=== PATIENT | female | born 1990 | race Hispanic/Latino ===

== ENCOUNTER 2017-08-12 06:04 | Emergency (ER) | payer OTHER, SELFPAY ==
[2017-08-12 06:21] LABS: Bilirubin Negative (Negative); Blood, Urine Negative (Negative); Clarity CLOUDY (Clear); Glucose, Urine (Dipstick) Negative (Negative); Leukocyte Large (Negative); Nitrite Negative (Negative); Protein, Urine (Dipstick) Negative (Neg-Trace); pH, Urine 5.5 (5.0-9.0)
[2017-08-12 06:23] LABS: Bacteria/HPF 1+ HPF (None Seen); Hyaline Casts/LPF 0-3 HYALINE CAST LPF (0-3 Hyaline)
[2017-08-12] MEDS ORDERED: Mag-Al 1200 mg/1200 mg/30 ML UDCUP ONE (06:26)
[2017-08-12] MEDS ORDERED: Lidocaine Viscous Sol 2% 15 ml UD Cup ONE (06:26)
[2017-08-12 06:30] LABS: #Lymphocytes 2.4 thou/uL (1.20-3.40); #Monocytes 0.6 thou/uL (0.11-0.59); #Neutrophils 7.1 thou/uL (1.40-6.50); %Basophils 0.4 % (0.0-1.0); %Eosinophils 0.4 % (0.0-10.0); %Lymphocytes 23.4 % (21.0-51.0); %Monocytes 5.7 % (0.0-10.0); Hemoglobin 13.8 g/dL (12.0-16.0); Mean Corpuscular HGB CONC 36.1 g/dL (32.0-36.0); Mean Corpuscular Hemoglobin 32.8 pg (27.0-31.0); Mean Corpuscular Volume 90.9 fL (78.0-98.0); Mean Platelet Volume 9.8 fL (7.4-10.4); Platelet Count 156 thou/uL (130-400); RBC Distribution Width 11.8 % (11.5-14.5); Red Blood Cell (RBC) Count 4.22 mill/uL (4.20-5.40); White Blood Cell (WBC) Count 10.1 thou/uL (4.8-10.8)
[2017-08-12 06:48] LABS: ALT (SGPT) 18 U/L (8-55); AST (SGOT) 15 U/L (5-34); Albumin 4.1 g/dL (3.5-5.0); Alkaline Phosphatase 69 U/L (40-150); Anion Gap 13 mmol/L (10-20); BUN (Urea Nitrogen) 9 mg/dL (7.0-18.7); Bilirubin, Total 0.9 mg/dL (0.2-1.2); Calc. Creatinine Clearance 0 mL/min (70-130); Calcium 9.4 mg/dL (7.8-10.44); Carbon Dioxide 20 mmol/L (22-29); Chloride 106 mmol/L (98-107); Estimated GFR-MDRD Greater than 90; Globulin 3.1 g/dL (2.4-3.5); Glucose 123 mg/dL (70-105); Lipase 23 U/L (8-78); Potassium 3.6 mmol/L (3.5-5.1); Protein, Total 7.2 g/dL (6.0-8.3); Sodium 135 mmol/L (136-145)
--- NOTE | 2017-08-12 08:53 | ULT ---
SONOGRAM RIGHT UPPER QUADRANT: Date: 08/12/17 HISTORY: Right upper quadrant pain. FINDINGS: Multiple shadowing stones are apparent within the gallbladder lumen. No pericholecystic fluid or gall bladder wall thickening. Common bile duct is 0.4 cm. Liver unremarkable without focal mass or intrahe patic biliary dilatation. No free fluid. IMPRESSION: Cholelithiasis. No evidence of acute biliary obstruction. POS: TPC
== END 2017-08-12 08:38 | disposition home or self-care (01) ==
LOC: ERS 06:04
DX: O99.611 Diseases of the digestive system complicating pregnancy, first trimester (principal); K80.20 Calculus of gallbladder without cholecystitis without obstruction; Z3A.08 8 weeks gestation of pregnancy
CPT/HCPCS: 36415; 76705; 80053; 81003; 81015; 83690; 84702; 85025

== ENCOUNTER 2018-06-22 18:11 | Inpatient (IN) | payer MEDICAID, OTHER ==
[2018-06-22] MEDS ORDERED: Ketorolac Tromethamine 30 MG/ML VIAL ONE (18:47)
[2018-06-22] MEDS ORDERED: Ondansetron PF 4 MG/2 ML Vial ONE (18:47)
[2018-06-22 18:52] LABS: Bilirubin Large (Negative); Blood, Urine Negative (Negative); Clarity Cloudy (Clear); Glucose, Urine (Dipstick) 100 mg/dL (Negative); Leukocyte Trace (Negative); Nitrite Negative (Negative); Protein, Urine (Dipstick) 30 mg/dL (Neg-Trace); Specific Gravity, Urine 1.025 (1.005-1.030); pH, Urine 5.5 (5.0-9.0)
[2018-06-22 18:54] LABS: Pregnancy Test - Urine (BHCG) Negative (Negative); Pregu Control Background? CLEAR/WHITE (CLR/WHITE); Pregu Control Bar Appear? YES (CONTROL BAR); Specific Gravity 1.025 (1.002-1.036)
[2018-06-22 18:55] LABS: RBC/HPF 0-3 HPF (0-3)
[2018-06-22 18:56] LABS: Bacteria/HPF 2+ HPF (None Seen); Crystals/HPF 2+ CA OXALATE HPF (Negative); Hyaline Casts/LPF 0-3 HYALINE CAST LPF (0-3 Hyaline)
[2018-06-22 19:29] LABS: ALT (SGPT) 478 U/L (8-55); AST (SGOT) 114 U/L (5-34); Albumin 4.6 g/dL (3.5-5.0); Alkaline Phosphatase 247 U/L (40-150); Anion Gap 18 mmol/L (10-20); BUN (Urea Nitrogen) 9 mg/dL (7.0-18.7); Bilirubin, Total 6.2 mg/dL (0.2-1.2); Calc. Creatinine Clearance 0 mL/min (70-130); Calcium 10.7 mg/dL (7.8-10.44); Carbon Dioxide 23 mmol/L (22-29); Chloride 102 mmol/L (98-107); Estimated GFR-MDRD 83; Glucose 127 mg/dL (70-105); Lipase 34 U/L (8-78); Potassium 3.8 mmol/L (3.5-5.1); Protein, Total 8.6 g/dL (6.0-8.3); Sodium 139 mmol/L (136-145)
[2018-06-22 19:30] LABS: #Lymphocytes 1.1 thou/uL (1.20-3.40); #Monocytes 0.3 thou/uL (0.11-0.59); #Neutrophils 7.7 thou/uL (1.40-6.50); %Basophils 0.5 % (0.0-1.0); %Eosinophils 0.2 % (0.0-10.0); %Lymphocytes 12.1 % (21.0-51.0); %Monocytes 3.1 % (0.0-10.0); %Neutrophils 84.1 % (42.0-75.0); Hemoglobin 14.8 g/dL (12.0-16.0); Mean Corpuscular HGB CONC 34.4 g/dL (32.0-36.0); Mean Corpuscular Hemoglobin 29.6 pg (27.0-31.0); Mean Corpuscular Volume 86.1 fL (78.0-98.0); Mean Platelet Volume 12.1 fL (7.4-10.4); Platelet Count 222 thou/uL (130-400); Platelet Morphology Comment Appears Adequate; RBC Distribution Width 13.9 % (11.5-14.5); Red Blood Cell (RBC) Count 4.99 mill/uL (4.20-5.40); White Blood Cell (WBC) Count 9.2 thou/uL (4.8-10.8)
--- NOTE | 2018-06-22 20:41 | ULT ---
ULTRASOUND ABDOMEN LIMITED: (RIGHT UPPER QUADRANT) DATE: 06/22/2018 HISTORY: 28-year-old female with epigastric and right upper quadrant abdominal pain FINDINGS: Gallbladder:Normal mural thickness. Multiple mobile gallstones. No pericholecystic fluid. Positive te nderness. Common duct: 8 mm. Liver:Normal size and echogenicity. Pancreas:Tail obscured by shadowing from bowel gas. Right kidney:No hydronephrosis. IMPRESSION: 1) dilated common duct suspicious for obstruction due to occult choledocholithiasis. 2.) Cholelithiasis.
[2018-06-22] MEDS ORDERED: Morphine 4 MG/ML VIAL ONE (20:57)
[2018-06-22] MEDS ORDERED: Piperacillin/Tazobactam 3.375 GM VIAL ONE (21:03)
[2018-06-22] MEDS ORDERED: Sodium Chloride 0.9% 100 ML ONE (21:03)
[2018-06-22] MEDS ORDERED: Morphine 4 MG/ML VIAL SLOW IVP PRN (22:31)
[2018-06-22] MEDS ORDERED: Ondansetron PF 4 MG/2 ML Vial IVP PRN (22:33)
[2018-06-22 22:45] VITALS: BMI 36.6
[2018-06-23] MEDS: Dextrose 5 %-0.45 % NaCl 1,000 ML IV SCH ×2 (01:57→09:29)
[2018-06-23] MEDS ORDERED: Piperacillin/Tazobactam 3.375 GM in Sodium Chloride 0.9% 100 ML IVPB SCH (03:00)
[2018-06-23 06:48] LABS: #Eosinphils 0.1 thou/uL (0.0-0.7); #Lymphocytes 1.5 thou/uL (1.20-3.40); #Monocytes 0.5 thou/uL (0.11-0.59); %Basophils 0.3 % (0.0-1.0); %Eosinophils 0.8 % (0.0-10.0); %Lymphocytes 20.5 % (21.0-51.0); %Monocytes 7.6 % (0.0-10.0); %Neutrophils 70.8 % (42.0-75.0); Hemoglobin 12.2 g/dL (12.0-16.0); Mean Corpuscular HGB CONC 33.7 g/dL (32.0-36.0); Mean Corpuscular Volume 89.2 fL (78.0-98.0); Platelet Count 183 thou/uL (130-400); Red Blood Cell (RBC) Count 4.08 mill/uL (4.20-5.40); White Blood Cell (WBC) Count 7.1 thou/uL (4.8-10.8)
[2018-06-23 07:08] LABS: ALT (SGPT) 308 U/L (8-55); AST (SGOT) 74 U/L (5-34); Albumin 3.5 g/dL (3.5-5.0); Alkaline Phosphatase 193 U/L (40-150); Anion Gap 12 mmol/L (10-20); BUN (Urea Nitrogen) 9 mg/dL (7.0-18.7); Bilirubin, Total 4.4 mg/dL (0.2-1.2); Calc. Creatinine Clearance 163 mL/min (70-130); Calcium 8.8 mg/dL (7.8-10.44); Carbon Dioxide 23 mmol/L (22-29); Chloride 107 mmol/L (98-107); Estimated GFR-MDRD Greater than 90; Glucose 124 mg/dL (70-105); Lipase 39 U/L (8-78); Potassium 3.6 mmol/L (3.5-5.1); Protein, Total 6.5 g/dL (6.0-8.3); Sodium 138 mmol/L (136-145)
[2018-06-23] MEDS ORDERED: Acetaminophen 1,000 MG in Premix Bag 1 BAG IVPB PRN (09:22)
[2018-06-23] MEDS ORDERED: Morphine 4 MG/ML VIAL SLOW IVP PRN (10:56)
[2018-06-23] MEDS ORDERED: Morphine 2 MG/ML SYRINGE SLOW IVP PRN (10:56)
[2018-06-23] MEDS ORDERED: Ondansetron ODT 4 MG TAB PO PRN (11:37)
[2018-06-23] MEDS: Piperacillin/Tazobactam 3.375 GM in Sodium Chloride 0.9% 100 ML IVPB SCH ×2 (12:39→20:03)
--- NOTE | 2018-06-23 14:10 | HP ---
CHIEF COMPLAINT: Abdominal pain. HISTORY: Ms. Flores is a 28-year-old woman, who presented to the emergency room with 6-day history of intermittent epigastric and right upper quadrant pain, which had become constant that day. She states that her symptoms felt very similar to when she was diagnosed with gallstone in last July when she was . She managed her gallstones nonoperatively at that time through diet and was able to carry her child to term. She gave in February through and has been doing well since then. For the past 6 days; however, she has had intermittent episodes of abdominal pain, nausea and vomiting. Yesterday, the pain became unrelenting, so she came to the emergency room. She states that her urine has been darker and more bright yellow in color for the past 3 days. Other than that, she has not noticed any other changes. She has not run any fevers or had any chills. PAST MEDICAL HISTORY: None. PAST SURGICAL HISTORY: x3. ALLERGIES: NO KNOWN DRUG ALLERGIES. MEDICATIONS: None. She has tried Tylenol and Tums at home for the pain, but these were not helpful. REVIEW OF SYSTEMS: Ten-system review of systems is negative, except per HPI. FAMILY HISTORY: Grandmother with ovarian cancer and other grandparents with diabetes. No other family history of malignancy. SOCIAL HISTORY: The patient does not smoke, drink, or use illicit drugs. PHYSICAL EXAMINATION: VITAL SIGNS: The patient has been afebrile since her admission. Heart rate 70, respirations 18, 98% saturated on room air, blood pressure 111/70. GENERAL: Reveals a pleasant woman, in no acute distress. She does not have any obvious jaundice or icterus. HEENT: Unremarkable. NECK: Supple without lymphadenopathy or thyroid nodules. HEART: Regular with rate and rhythm without murmurs, rubs, or gallops. LUNGS: Clear to auscultation bilaterally. She does not have any pain with deep inspiration. ABDOMEN: Soft and nondistended. She is tender to palpation in the right upper quadrant, but does not exhibit rigidity, rebound, or guarding. No palpable masses or hernias. Healed Pfannenstiel incision. EXTREMITIES: Warm and well-perfused without edema. NEURO: There are no focal deficits. PSYCHIATRIC: Alert, oriented, and appropriate. LABORATORY DATA: White count is normal at 7.1. She does not have a left shift. Electrolytes are unremarkable. Bilirubin is 4.4, down slightly from 6.2 in the ER last night. Lipase is normal. AST 308, alkaline phosphatase 193, and AST 74. These are all slightly down from last night. Gallbladder ultrasound is reviewed. This shows dilation of the common bile duct from 4 mm in July of last year to 8 mm last night. She has multiple stones in the gallbladder and tenderness over this area, but no wall thickening or pericholecystic fluid. ASSESSMENT AND PLAN: Cholelithiasis with likely choledocholithiasis. She is on prophylactic antibiotics due to risk for cholangitis, but does not have any signs of that. Currently, due to her dilated bile ducts and markedly elevated LFTs, after discussion with Gastroenterology, the plan is to proceed with ERCP today. I will get her on the schedule for a lap anu tomorrow. Inherent risks of both procedures were discussed with the patient. These risks included, but are not limited to bleeding, infection, risks of anesthesia, bowel perforation, and pancreatitis for the ERCP and for the laparoscopic cholecystectomy, damage to nearby structures including bowel, liver, bile duct, and need for open surgery or other procedures. She understands and accepts these risks and wishes to proceed. She is currently comfortable after receiving pain medications and antibiotics. Job ID: [id number]
[2018-06-23] MEDS ORDERED: Fentanyl 100 MCG/2 ML VIAL ONE (15:28)
[2018-06-23] MEDS ORDERED: Lidocaine 2% Jelly 5 ML TUBE ONE (15:28)
[2018-06-23] MEDS ORDERED: Midazolam HCl 2 mg/2 ml Vial ONE (15:28)
[2018-06-23] MEDS ORDERED: Indomethacin 50 MG SUPP ONE (17:39)
[2018-06-23] MEDS ORDERED: Iothalamate Meglumine 60% 50 ML VIAL FS ONE (17:39)
[2018-06-23] MEDS: D5 1/2 NS w/20 mEq KCL 1,000 ML IV SCH ×2 (18:27→20:03)
[2018-06-23] MEDS ORDERED: SUGAMMADEX SODIUM 200 MG/2 ML VIAL ONE (18:34)
--- NOTE | 2018-06-23 18:41 | RAD ---
Radiograph ERCP 2 views: DATE: 06/23/2018 HISTORY: 28-year-old female with right upper quadrant abdominal pain, and dilation of the common bile duct not ed on ultrasound yesterday FINDINGS: Contrast injection into the inferior portion of the common bile duct. Initially, there is faint opaci fication of the common bile duct and common hepatic duct without apparent dilation. However, on the second image, there is diffuse mild dilation of the common bile duct and common hepat ic duct, and of the left and right hepatic ducts. Faint, small ill-defined filling defects at the inferior aspect of the common bile duct. No contrast is visualized in the duodenum. IMPRESSION: Diffuse mild dilation of the common bile duct and common hepatic duct, suggestive of at least partial occlusion by choledocholithiasis.
[2018-06-23] MEDS ORDERED: Promethazine HCl 25 MG/ML VIAL SLOW IVP PRN (18:49)
[2018-06-23] MEDS ORDERED: Promethazine HCl 25 MG/ML VIAL IM PRN (18:49)
[2018-06-23] MEDS ORDERED: Ondansetron HCl/PF 4 MG/2 ML Vial IVP PRN (18:49)
[2018-06-23] MEDS ORDERED: Promethazine HCl 25 MG/ML VIAL ONE (18:59)
--- NOTE | 2018-06-23 21:22 | CON ---
DATE OF CONSULTATION: 06/23/2018 HISTORY OF PRESENT ILLNESS: Ms. Flores is a pleasant 28-year-old female who had a baby in February. She states that back in July, she had symptomatic cholelithiasis, but then the symptoms went away. She had a section in February and was doing pretty good until the last 6 days or so she started to develop left lower quadrant abdominal pain, some radiation to the back at times with nausea and vomiting. It became constant and severe the day of admission yesterday and this had not been that bad since last July. She has had no fever or chills. Her weight has been stable. In the emergency room, her urine she noted it was more dark and had been little bit that way over the past 3 to 4 days. Presently, she is feeling better with IV fluids. She had an ultrasound that showed 8 mm common bile duct. Gallbladder had normal thickness with multiple stones. She was admitted to Dr. Foster. I talked with Dr. Foster this morning in light of the dilated duct and this significantly elevated bilirubin of 6.2 yesterday, some drop in liver function tests today with a high likelihood of choledocholithiasis. As suggested, we would proceed with ERCP before lap choly. Ms. Flores has done well overnight. She had no fever or chills. PAST MEDICAL HISTORY: Negative. PAST SURGICAL HISTORY: section x2. ALLERGIES: NONE. MEDICATIONS: At home, none. PRESENT MEDICATIONS: 1. Morphine. 2. Zofran. 3. Acetaminophen. 4. D5 half-normal saline at 120 an hour. PHYSICAL EXAMINATION: VITAL SIGNS: Temperature is 98.4, pulse 83, blood pressure 107/74. LUNGS: Clear. HEART: Regular rate and rhythm without clicks, rubs, or murmurs. ABDOMEN: Soft, nontender. There is no rebound. There is no real tenderness in upper quadrant at this time. There is no Allen's sign. EXTREMITIES: No clubbing, cyanosis, or edema. LABORATORY STUDIES: Electrolytes are normal. Bilirubin was 6.2 last night, 4.4 this morning. AST has gone from 114 to 74, ALT from 478 to 308, alkaline phosphatase from 247 to 193, lipase was 34 last night and 39 today. White count 7.1, hemoglobin 12.2, platelet count 183. ASSESSMENT: 1. Symptomatic cholelithiasis. 2. Ultrasound and liver enzymes consistent with choledocholithiasis. It maybe that she may have passed a stone or may not be completely obstructed at this time. Her numbers have come down, but not resolved completely. In talking with General Surgery and the patient regarding risks, benefits, possible complications of ERCP, preop or electively postop if IOC was possible. We decided high likelihood of retained stone. With her present LFTs, we would proceed with preoperative ERCP. Risks, benefits, and possible complications of ERCP have been discussed with the patient and significant other, who was in the room, including, but not limited to aspiration, anesthetic reaction, bleeding, perforation of intestine or pancreatitis. She understands these risks and the indication for the procedure and wishes to proceed. PLAN: ERCP, Dr. Hardwick will perform that procedure today as he is performing endoscopy for the GI Service today. We explained to the patient that he will talk to her in person and perform that procedure for her a little bit later this afternoon. She is accepting of that plan. Job ID: [id number]
[2018-06-24] MEDS: Piperacillin/Tazobactam 3.375 GM in Sodium Chloride 0.9% 100 ML IVPB SCH ×3 (00:54→12:38)
--- NOTE | 2018-06-24 01:18 | OP ---
DATE OF PROCEDURE: 06/23/2018 PROCEDURE PERFORMED: Endoscopic retrograde cholangiopancreatography with sphincterotomy and stone extraction. PREMEDICATION: Given by Anesthesiology Department. PREPROCEDURE DIAGNOSES: 1. Cholelithiasis. 2. Elevation of liver profile and dilated common duct on ultrasound. POSTPROCEDURE DIAGNOSIS: Choledocholithiasis. PROCEDURE IN DETAIL: Written consents were obtained prior to procedure. After adequate sedation, a side-viewing endoscope was advanced down the stomach through the pylorus into the duodenum. The ampulla was visualized and appeared normal. Selective cannulation was performed using a sphincterotome. The cannulation was successful into the common bile duct. Opacification of the duct showed a single over-filling defect in the mid duct. The caliber of the duct measured approximately 10 mm. A sphincterotomy was performed at 12 o'clock position with good hemostasis. A 12-mm balloon was then used to sweep the duct with extraction of a single cholesterol type stone. Repeat occlusive cholangiogram was performed, was normal. The balloon was removed. There was prompt excretion of contrast. The instrument was then fully removed. The patient tolerated the procedure well without any complication. ASSESSMENT: Choledocholithiasis with one single stone, status post sphincterotomy and extraction. RECOMMENDATIONS: Proceed with laparoscopic cholecystectomy. Job ID: [id number]
[2018-06-24] MEDS: D5 1/2 NS w/20 mEq KCL 1,000 ML IV SCH ×2 (03:28→05:03)
--- NOTE | 2018-06-24 07:33 | PRG ---
DATE OF SERVICE: 06/24/2018 SUBJECTIVE: The patient feels fine without any abdominal pain. There is no nausea or vomiting. PHYSICAL EXAMINATION: VITAL SIGNS: Temperature is 98.1, blood pressure 116/69, and pulse is 74. GENERAL: She is alert, no distress. HEAD AND NECK: Show mildly icteric sclerae. Oropharynx is clear and moist. CV: Shows normal S1, S2. Regular rate and rhythm. CHEST: Shows breath sounds. ABDOMEN: Mildly protuberant but soft and nontender. No distention. No tympany. She has active bowel sounds. EXTREMITIES: Show no edema. LABORATORY DATA: Electrolytes within normal range. Bilirubin down to 4.4, AST 74, ALT 308, and alkaline phosphatase 193. ASSESSMENT: 1. Status post endoscopic retrograde cholangiopancreatography with extraction of common bile duct stone. LFT is trending down. 2. Cholelithiasis. RECOMMENDATIONS: 1. Doing fine from GI standpoint. Proceed with laparoscopic cholecystectomy. 2. Please call if needed. Job ID: [id number]
[2018-06-24] MEDS ORDERED: Bupivacaine/Epinephrine 0.25% 30 ML VIAL ONE (10:45)
[2018-06-24] MEDS ORDERED: Fentanyl 100 MCG/2 ML VIAL ONE ×2 (11:36→13:12)
[2018-06-24] MEDS ORDERED: Morphine Sulfate 2 MG/ML SYRINGE SLOW IVP PRN (13:13)
[2018-06-24] MEDS ORDERED: Ondansetron HCl/PF 4 MG/2 ML Vial IVP PRN (13:13)
[2018-06-24] MEDS ORDERED: PACU-Morphine 4MG/ML VIAL SLOW IVP PRN (13:13)
[2018-06-24] MEDS ORDERED: HYDROmorphone 2 MG/ML VIAL SLOW IVP PRN (13:13)
[2018-06-24] MEDS ORDERED: Meperidine HCl/PF 25 MG/ML VIAL SLOW IVP PRN (13:13)
[2018-06-24] MEDS ORDERED: Promethazine HCl 25 MG/ML VIAL IM PRN (13:13)
[2018-06-24] MEDS ORDERED: Ketorolac Tromethamine 30 MG/ML VIAL IVP PRN (13:13)
[2018-06-24] MEDS ORDERED: Promethazine HCl 25 MG/ML VIAL SLOW IVP PRN (13:13)
[2018-06-24] MEDS ORDERED: Meperidine HCl/PF 25 MG/ML VIAL ONE (13:20)
[2018-06-24] MEDS ORDERED: Promethazine 25 MG TAB PO PRN (14:20)
[2018-06-24] MEDS ORDERED: Acetaminophen 325 MG TAB PO PRN (14:21)
[2018-06-24] MEDS ORDERED: Ibuprofen 200 MG TAB PO PRN (14:22)
[2018-06-24] MEDS ORDERED: HYDROcodone/Acetaminophen 5/325 mg Tablet PO PRN (14:22)
[2018-06-24 14:39] VITALS: TEMP 98.1
[2018-06-24 18:22] VITALS: BP 125/83
--- NOTE | 2018-06-25 11:53 | DIS ---
DATE OF ADMISSION: 06/22/2018 DATE OF DISCHARGE: 06/24/2018 FINAL DIAGNOSES: 1. Cholelithiasis. 2. Choledocholithiasis. PROCEDURES: ERCP and stone extraction on 06/23/2018 and laparoscopic cholecystectomy on 06/24/2018. HISTORY: Ms. Flores is a 28-year-old woman, who was diagnosed with gallstones during her previous . She delivered in February, but had not yet sought surgical treatment for her gallstones. She had recurrent symptoms and came to the emergency room, was found to have an elevated bilirubin and dilated bile duct. She was taken to the operating room the following day for ERCP and stone extraction, which went well. Postoperatively, she was pain-free. She then went for laparoscopic cholecystectomy the following day, which was uneventful. She recovered well and was discharged home later that same day. She is to avoid heavy lifting for 2 weeks' time and use a low-fat diet. She is to follow up in the General Surgery [facility] in 2 weeks. DISCHARGE MEDICATIONS: Include [place] and Phenergan. Thank you very much. Job ID: [id number]
--- NOTE | 2018-06-25 13:20 | PDOC.OP ---
Operative Note - Operative Note Operative Note: DATE OF PROCEDURE: 06/24/2018 PROCEDURES: Laparoscopic cholecystectomy. SURGEON: Julian Foster M.D. PREOPERATIVE DIAGNOSIS: Cholelithiasis status post ERCP for choledocholithiasis POSTOPERATIVE DIAGNOSIS: Cholelithiasis status post ERCP for choledocholithiasis FINDINGS: White walled chronically distended gallbladder filled with multiple small stones. Somewhat enlarged cystic duct with no extruded gallstones. HISTORY: Patient with known gallstones who presented with hyperbilirubinemia and dilated common bile duct. She underwent ERCP and stone extraction yesterday. Upper scopic cholecystectomy was recommended to prevent future episodes. PROCEDURE: After informed consent was obtained and appropriate preoperative antibiotics were administered, the patient was taken to the operating room and placed in the supine position and general endotracheal anesthesia was administered. The stomach was decompressed with an OG tube and the abdomen was prepped and draped in standard sterile fashion. Local anesthesia was infused to the skin and subcutaneous tissues at the umbilical level. A transverse skin incision was made. The fascia was elevated and a Veress needle was placed into the abdominal cavity without difficulty. Opening pressure was less than 5 and carbon dioxide gas easily insufflated to an intra-abdominal pressure of 15, which the patient tolerated well. The Veress needle was withdrawn and a [place] port advanced under direct vision. The abdominal cavity was carefully examined. There was no evidence of Veress needle or of trocar injury. Local anesthesia was infused to the skin and subcutaneous tissues at the epigastric, right upper quadrant, and right lateral abdominal sites and trocars were placed under direct vision of the laparoscope. The fundus of the gallbladder was grasped and retracted superiorly. The infundibulum was grasped and retracted laterally. The serosa was stripped inferiorly at the level of the neck of the gallbladder exposing the cystic duct and artery which were traced clearly to their insertion in the gallbladder. The cystic duct was somewhat enlarged so a clip was placed across the cystic duct at the level of the neck of the gallbladder and an incision made inferior to this. The cystic duct was superiorly to make sure that there were no stones in the cystic duct, but only clear bile was seen. The cystic duct was clipped below the incision and divided between these clips and the upper clip. The cystic artery was likewise clipped and divided between clips. The gallbladder was then dissected free of the gallbladder bed using hook electrocautery. Prior to complete removal of the gallbladder from the gallbladder bed, the area of the cystic duct and artery stumps was examined. The clips were in good position completely across these structures and there was no bleeding and no leakage of bile. The gallbladder was then placed into an EndoCatch bag and drawn out through the epigastric incision. The epigastric trocar was replaced and the operative site easily irrigated to clear. There was no significant bleeding or spillage of bile. The epigastric trocar was removed and the fascia closed under direct laparoscopic vision with a 0 Vicryl suture on a GraNee needle in a [id number] manner with excellent technical result. The right upper quadrant and right lateral abdominal trocars were removed and hemostasis verified. Carbon dioxide gas was allowed to desufflate through the umbilical trocar which was then removed. The skin incisions were closed with 4-0 subcuticular Monocryl sutures and Dermabond dressings were placed. The patient was extubated and taken to the recovery room in good condition. There were no complications. ESTIMATED BLOOD LOSS: Minimal. SPECIMEN : Gallbladder and contents.
== END 2018-06-24 18:55 | disposition home or self-care (01) | DRG 419 ==
LOC: SCSER 18:11 → SURG A 20:55
PROVIDERS: ADMIT Surgery; ATTEND Surgery
PROC: 0FC98ZZ Extirpation of Matter from Common Bile Duct, Via Natural or Artificial Opening Endoscopic (ICD-10-PCS; 2018-06-23)
PROC: 0FT44ZZ Resection of Gallbladder, Percutaneous Endoscopic Approach (ICD-10-PCS; principal; 2018-06-24)
DX: K80.70 Calculus of gallbladder and bile duct without cholecystitis without obstruction (principal)
CPT/HCPCS: 36415; 74330; 76705; 80053; 81003; 81015; 81025; 83690; 85025; 87086; 88304; 96361; 96365; 96375; J0131; J1610; J1885; J2175; J2250; J2270; J2405; J2543; J2550; J3010; J3490; Q9961